=== PATIENT | female | born 1965 | race Caucasian/White ===

== ENCOUNTER → 2016-09-03 | Outpatient (CLI) | payer MEDICAID ==
[~2016-09-03] MED LIST: AFRIN NS; ALBUTEROL SULFATE NS; ASTELIN NASAL S30 ML NS; ATARAX-DPS25 MG PO; ATROVENT SOLN.2.5 ML IH; CLEOCIN HCL300 MG PO; CLEOCIN PO; CRESTOR20 MG PO; CULTURELLE1 CAP PO; CYMBALTA60 MG PO; DUONEB DPS3 ML IH; ELOCON45 GM AU; FLEXERIL-DPS10 MG PO; FLONASE 0.05% D16 GM NS; HUMALOG100 UNIT/1 SQ; HYDROCODONE PO; IMITREX DPS50 MG PO; IMITREX PO; INDERAL DPS20 MG PO; IPRATROPIUM BROMIDE IH; KLOR-CON M2020 ME1 PO; LANTUS100 UNITS/ SQ; LASIX DPS40 MG PO; LIBRAX PO; LISINOPRIL20 MG PO; LOMOTIL DPS1 PO; LOMOTIL-DPS1 TAB PO; LYRICA100 MG PO; LYRICA200 MG PO; MELOXICAM15 MG PO; MIRAPEX0.5 MG PO; MYCOSTATIN PWD15 GM TP; NOVOLOG100 UNIT/2 SQ; OMEPRAZOLE20 M1 PO; POTASSIUM PO; PROVENTIL HFA6.7 GM IH; PROVENTIL IH; PROVENTIL2.5 MG/3 M IH; ROBITUSSIN200 MG/10 PO; SALINE SPRAY NS; SINGULAIR10 MG PO; SONATA10 MG PO; SPIRIVA IH; SPIRIVA18 MCG IH; SYMBICORT80 MCG/6.9 IH; TRAMADOL HCL50 MG PO; ZANAFLEX4 M2 PO; ZESTRIL DPS20 MG PO; ZYRTEC DPS10 MG PO; [UNRECOGNIZED DRUG - OTHER] PO
== END | disposition home or self-care (01) ==
LOC: RAD.S 08-27 15:00
DX: Z12.31 Encounter for screening mammogram for malignant neoplasm of breast (principal)